=== PATIENT | female | born 1955 | race Caucasian/White ===

== ENCOUNTER 2017-08-08 16:06 | Inpatient (IN) | payer SELFPAY ==
[~2017-08-08] VITALS: Ht 167.6 cm; Wt 137.0 kg
[~2017-08-08 16:06] MED LIST: CITRAZINE; DICY1TAB26 PO; TAB-TAB PO; ZOFR4TAB OR; bariatric vitamins
[2017-08-08 16:22] VITALS: BP 157/95; PULSE 66; RESP 20; TEMP 97.4; O2SAT 96
[2017-08-08] MEDS ORDERED: METO25TA3 PO (16:44)
[2017-08-08] MEDS ORDERED: PARO20TA2 PO (16:44)
--- NOTE | 2017-08-08 17:25 | RADRPT ---
EXAM DATE/TIME: 08/08/2017 17:08 [place] COMPARISON: No previous studies available for comparison. INDICATIONS : Trauma, fall. MEDICAL HISTORY : Arthritis. SURGICAL HISTORY : None. ENCOUNTER: Initial ACUITY: 1 day PAIN SCORE: 10/10 LOCATION: Left wrist FINDINGS: There is a moderately comminuted and displaced/angulated intra-articular distal left radial fracture with dorsal angulation and displacement multiple small distal radial fracture fragments. There is jacki e foreshortening resulting in ulnar positive variance. The carpals are trans-located dorsally with th e distal radial articular surface fragments. Small ulnar styloid fracture fragment is present. There is no evidence of carpal fracture. There is mild arthritic change in the thumb carpal joint region. CONCLUSION: Comminuted moderately displaced, angulated and impacted distal left radial fracture as described Mainor Comer MD on August 08, 2017 at 17:21 Board Certified Radiologist. This report was verified electronically.
--- NOTE | 2017-08-08 17:28 | PD ---
HPI Chief Complaint: Fall Time Seen by Provider: 17:17 Travel History International Travel<30 days: No Contact w/Intl Traveler<30days: No Traveled to known affect area: No History of Present Illness HPI 61yo F with PMH of arthritis and carpal tunnel here with c/o left wrist pain s/ p fall about an hour ago. Said she was pulling weeds and was about to fall backwards but used her left wrist to stop the fall. Said she heard a pop and it swelled up immediately. Pain is localized in left wrist. Denies any fever, chest pain, sob, head trauma, n/v, abdominal pain, focal weakness or numbness. PFSH Past Medical History Blood Disorders: No Cancer: No Cardiovascular Problems: No Diabetes: Yes (RESOLVED WITH WEIGHT LOSS) Patient Takes Glucophage: No Endocrine: Yes (POLYCYSTITIS OVARIAN DISEASE) Gastrointestinal Disorders: Yes Glaucoma: No Genitourinary: No Hepatitis: No Hiatal Hernia: No Hypertension: No Immune Disorder: No Musculoskeletal: No Neurologic: No Psychiatric: No Reproductive: No Respiratory: No Thyroid Disease: No Influenza Vaccination: No ?: Not Menopausal: Yes Past Surgical History Abdominal Surgery: Yes (LAP CHOLECYSTECTOMY) Cholecystectomy: Yes Pacemaker: No Other Surgery: Yes (gastric bypass) Social History Alcohol Use: Yes (VERY RARELY) Tobacco Use: No Allergies-Medications (Allergen,Severity, Reaction): Coded Allergies: Sulfa (Sulfonamide Antibiotics) (Unverified Allergy, Unknown, DOES NOT KNOW CHILD, 08/08/17) ampicillin (Unverified Allergy, Unknown, DOES NOT KNOW CHILD, 08/08/17) Reported Meds & Prescriptions Reported Meds & Active Scripts Active Reported Paroxetine (Paroxetine HCl) 20 Mg Tab 20 Mg PO DAILY Metoprolol Tartrate 25 Mg Tab 12.5 Mg PO BID Review of Systems Except as stated in HPI: all other systems reviewed are Neg Physical Exam Narrative GENERAL: 61yo F in moderate distress. SKIN: Focused skin assessment warm/dry. HEAD: Atraumatic. Normocephalic. EYES: Pupils equal and round. No scleral icterus. No injection or drainage. ENT: No nasal bleeding or discharge. Mucous membranes pink and moist. NECK: Trachea midline. No JVD. CARDIOVASCULAR: Regular rate and rhythm. No murmur appreciated. RESPIRATORY: No accessory muscle use. Clear to auscultation. Breath sounds equal bilaterally. GASTROINTESTINAL: Abdomen soft, non-tender, nondistended. MUSCULOSKELETAL: LUE: +TTP distal radis > distal ulna. Sensation intact. Radial pulse 2+. No ttp left elbow. NEUROLOGICAL: Awake and alert. No obvious cranial nerve deficits. Motor grossly within normal limits. Normal speech. PSYCHIATRIC: Appropriate mood and affect; insight and judgment normal. Data Data Last Documented VS Vital Signs Date Time Temp Pulse Resp B/P (MAP) Pulse Ox O2 Delivery O2 Flow Rate FiO2 08/08/17 18:11 70 16 137/93 (108) 99 08/08/17 16:45 Room Air 08/08/17 16:22 97.4 Orders Orders Wrist, Complete ([id number]) (08/08/17 ) Morphine Inj (Morphine Inj) (08/08/17 17:45) Complete Blood Count With Diff (08/08/17 17:41) Basic Metabolic Panel (Bmp) (08/08/17 17:41) Prothrombin Time / Inr (Pt) (08/08/17 17:41) Act Partial Throm Time (Ptt) (08/08/17 17:41) Type And Screen (08/08/17 17:41) Splint Or Brace Apply/Monitor (08/08/17 18:10) Admit Order (Ed Use Only) (08/08/17 18:37) Consult Orthopedic (08/08/17 ) Labs Laboratory Tests Test 08/08/17 17:45 White Blood Count 7.2 TH/MM3 Red Blood Count 4.98 MIL/MM3 Hemoglobin 13.8 GM/DL Hematocrit 42.2 % Mean Corpuscular Volume 84.8 FL Mean Corpuscular Hemoglobin 27.7 PG Mean Corpuscular Hemoglobin Concent 32.7 % Red Cell Distribution Width 13.7 % Platelet Count 268 TH/MM3 Mean Platelet Volume 7.4 FL Neutrophils (%) (Auto) 74.1 % Lymphocytes (%) (Auto) 18.3 % Monocytes (%) (Auto) 5.7 % Eosinophils (%) (Auto) 1.3 % Basophils (%) (Auto) 0.6 % Neutrophils # (Auto) 5.4 TH/MM3 Lymphocytes # (Auto) 1.3 TH/MM3 Monocytes # (Auto) 0.4 TH/MM3 Eosinophils # (Auto) 0.1 TH/MM3 Basophils # (Auto) 0.0 TH/MM3 CBC Comment DIFF FINAL Differential Comment Prothrombin Time 9.9 SEC Prothromb Time International Ratio 1.0 RATIO Activated Partial Thromboplast Time 26.2 SEC Blood Urea Nitrogen 15 MG/DL Creatinine 1.10 MG/DL Random Glucose 111 MG/DL Calcium Level 9.0 MG/DL Sodium Level 137 MEQ/L Potassium Level 3.7 MEQ/L Chloride Level 103 MEQ/L Carbon Dioxide Level 26.2 MEQ/L Anion Gap 8 MEQ/L Estimat Glomerular Filtration Rate 50 ML/MIN [facility] Medical Decision Making Medical Screen Exam Complete: Yes Emergency Medical Condition: Yes Differential Diagnosis Fracture vs. contusion Narrative Course 61yo F with left wrist pain s/p breaking her fall with her left wrist today. Neurovascular intact. Last PO intake 12pm. Not on any anticoagulation. PMH include PACs on metoprolol, panic attack on paroxetine. Xray of left wrist showed comminuted moderately displaced, angulated and impacted distal radius fracture. I discussed with orthopedic surgeon live ammunition inspector Dr. Domínguez and he said that I would not be able to reduce that and pt needs surgery. He gave pt two options, either transfer to [facility] for surgery tomorrow or follow up in his clinic this Sunday. Pt wants to stay and be transfer for surgery tomorrow. He recommends admission to medicine, consult orthopedic and he will do surgery tomorrow morning. Labs reviewed, no leukocytosis. H/H normal. BMP unremarkable. Discussed with Dr. Bell and accepted to her service. Orthopedic consult placed. Diagnosis Primary Impression: Distal radius fracture, left Admitting Information Admitting Physician Requests: Admit Scripts Hydrocodone/Acetaminophen (Hydrocodone-Acetamin 7.5-325) 7.5 Mg-325 Mg Tablet 1 TAB PO Q6H Y for pain, #40 TAB Prov: Robbie Griffith MD 08/09/17 Karin Diego DO Aug 08, 2017 17:28
[2017-08-08] MEDS ORDERED: MORPHINE SULFATE 4 MG/ML INJ IV PUSH ONE (17:45)
[2017-08-08 18:03] LABS: AUTOMATED NEUTROPHIL # 5.4 TH/MM3 (1.8-7.7); BASOPHIL % 0.6 % (0.0-2.0); EOSINOPHIL # 0.1 TH/MM3 (0-0.4); EOSINOPHIL % 1.3 % (0.0-4.0); HEMATOCRIT 42.2 % (35.0-46.0); HEMOGLOBIN 13.8 GM/DL (11.6-15.3); LYMPH % 18.3 % (9.0-44.0); LYMPHOCYTE # 1.3 TH/MM3 (1.0-4.8); MEAN CELL VOLUME 84.8 FL (80.0-100.0); MEAN CORPUSCULAR HEMOGLOBIN 27.7 PG (27.0-34.0); MEAN CORPUSCULAR HGB CONC 32.7 % (32.0-36.0); MEAN PLATELET VOLUME 7.4 FL (7.0-11.0); MONO % 5.7 % (0.0-8.0); MONOCYTE # 0.4 TH/MM3 (0-0.9); NEUT % 74.1 % (16.0-70.0); PLATELET COUNT 268 TH/MM3 (150-450); RED BLOOD COUNT 4.98 MIL/MM3 (4.00-5.30); RED CELL DISTRIBUTION WIDTH 13.7 % (11.6-17.2); WHITE BLOOD COUNT 7.2 TH/MM3 (4.0-11.0)
[2017-08-08 18:11] VITALS: BP 137/93; PULSE 70; RESP 16; O2SAT 99
[2017-08-08 18:22] LABS: BICARBONATE 26.2 MEQ/L (21.0-32.0)
[2017-08-08 18:25] LABS: PROTHROMBIN TIME - PATIENT 9.9 SEC (9.8-11.6)
[2017-08-08 18:26] LABS: CREATININE 1.1 MG/DL (0.50-1.00)
[2017-08-08] MEDS ORDERED: TEMAZEPAM 15 MG CAP PO PRN (18:45)
[2017-08-08] MEDS ORDERED: NALOXONE HCL 0.4 MG/ML AMP IV PUSH PRN (18:45)
[2017-08-08] MEDS ORDERED: ACETAMINOPHEN 325 MG TAB PO PRN (18:45)
[2017-08-08] MEDS ORDERED: ONDANSETRON HCL 4 MG/2 ML VIAL IVP PRN (18:45)
[2017-08-08] MEDS ORDERED: SENNOSIDES 8.6 MG TAB PO PRN (18:45)
[2017-08-08] MEDS ORDERED: SODIUM CHLORIDE 0.9% FLUSH 10 ML FLUSH IV FLUSH PRN (18:45)
[2017-08-08] MEDS: SODIUM CHLOR 0.9% 1000 ML INJ 1,000 ML IV SCH (19:29)
[2017-08-08] MEDS: SODIUM CHLORIDE 0.9% FLUSH 10 ML FLUSH IV FLUSH SCH (21:00)
[2017-08-08] MEDS ORDERED: PILL SPLITTER OTHER PRN (21:30)
[2017-08-08 22:02] VITALS: BP 155/72; PULSE 84; RESP 18; TEMP 96.9; O2SAT 100
[2017-08-08] MEDS: ACETAMINOPHEN/HYDROcodone 325 MG/7.5 MG TAB PO PRN (22:47)
[2017-08-08] MEDS: METOPROLOL TARTRATE 25 MG TAB PO SCH (22:47)
[2017-08-08] MEDS ORDERED: POVIDONE IODINE 5% (ANTISEPSIS KIT) 4 APPLICATIONS EACH NARE PRN (23:45)
[2017-08-08] MEDS ORDERED: CHLORHEXIDINE GLUCONATE 2 % 1 PACK (2 CLOTHS) TOPICAL PRN (23:45)
[2017-08-08] MEDS ORDERED: SODIUM CHLORID 0.9% 500 ML IV PRN (23:45)
[2017-08-08] MEDS ORDERED: LACTATED RINGER'S 1000 ML IV PRN (23:45)
[2017-08-09 01:00] VITALS: BP 134/71; PULSE 56; RESP 18; TEMP 98.4; O2SAT 94
[2017-08-09] MEDS: SODIUM CHLOR 0.9% 1000 ML INJ 1,000 ML IV SCH (04:38)
[2017-08-09 04:57] VITALS: BP 129/69; PULSE 65; RESP 18; TEMP 97.1; O2SAT 95
[2017-08-09] MEDS: ACETAMINOPHEN/HYDROcodone 325 MG/7.5 MG TAB PO PRN ×2 (05:00→10:30)
[2017-08-09] MEDS: METOPROLOL TARTRATE 25 MG TAB PO SCH (07:24)
--- NOTE | 2017-08-09 07:53 | PD.CONS ---
HPI Service Orthopedic Surgeons Consult Requested By Admission staff Reason for Consult Fracture of the left wrist Primary Care Physician Noel Goldberg MD Admission Diagnosis Comminuted fracture left distal radius Diagnoses: Chief Complaint: Left wrist pain and deformity History of Present Illness This patient is a 61-year-old female who yesterday was pulling weeds. She tripped falling on her outstretched left arm. She had immediate pain and deformity and was seen and [facility] in [place]. X-rays were obtained showing evidence of a comminuted intra-articular fracture of the left distal radius. She has been admitted to the medical service and I have been asked to see her in consultation regarding the same Past Family Social History Allergies: Coded Allergies: Sulfa (Sulfonamide Antibiotics) (Unverified Allergy, Unknown, DOES NOT KNOW CHILD, 08/08/17) ampicillin (Unverified Allergy, Unknown, DOES NOT KNOW CHILD, 08/08/17) Active Ordered Medications Current Medications Medications (Trade) Dose Ordered Sig/Josue Route Start Time Stop Time Status Last Admin Sodium Chloride 1,000 ml @ 100 mls/hr Q10H IV 08/08/17 18:38 08/08/17 19:29 (NS Flush) 2 ml UNSCH PRN IV FLUSH 08/08/17 18:45 (NS Flush) 2 ml BID IV FLUSH 08/08/17 21:00 (Tylenol) 650 mg Q4H PRN PO 08/08/17 18:45 (Zofran Inj) 4 mg Q6H PRN IVP 08/08/17 18:45 (Restoril) 15 mg HS PRN PO 08/08/17 18:45 (Narcan Inj) 0.4 mg UNSCH PRN IV PUSH 08/08/17 18:45 (Senokot) 17.2 mg Q12H PRN PO 08/08/17 18:45 (Lopressor) 12.5 mg BID PO 08/08/17 21:00 08/09/17 07:24 (Paxil) 20 mg DAILY PO 08/09/17 09:00 08/09/17 07:27 ([place] 7.5-325 Mg) 1 tab Q6H PRN PO 08/08/17 18:45 08/09/17 05:00 Lactated Ringer's 1,000 ml @ 30 mls/hr Q24H PRN IV 08/08/17 23:45 08/11/17 23:44 Sodium Chloride 500 ml @ 30 mls/hr [id number] PRN IV 08/08/17 23:45 08/11/17 23:44 (Betadine 5% Antisepsis Kit) 1 applic TRANSPORTATION ANALYST PRN EACH NARE 08/08/17 23:45 08/11/17 23:44 (Chlorhexidine 2% Cloth) 3 pack TRANSPORTATION ANALYST PRN TOPICAL 08/08/17 23:45 08/11/17 23:44 Reported Meds & Active Scripts Active Reported Paroxetine (Paroxetine HCl) 20 Mg Tab 20 Mg PO DAILY Metoprolol Tartrate 25 Mg Tab 12.5 Mg PO BID Physical Exam Vital Signs Vital Signs Date Time Temp Pulse Resp B/P (MAP) Pulse Ox O2 Delivery O2 Flow Rate FiO2 08/09/17 04:57 97.1 65 18 129/69 (89) 95 08/09/17 01:00 98.4 56 18 134/71 (92) 94 08/08/17 22:02 96.9 84 18 155/72 (99) 100 08/08/17 21:20 08/08/17 18:11 70 16 137/93 (108) 99 08/08/17 16:45 Room Air 08/08/17 16:22 97.4 66 20 157/95 (115) 96 Physical Exam HEENT: Normocephalic atraumatic pupils equal round reactive. NECK: Supple. No abnormal masses. Full range of motion. CHEST: Clear to auscultation with no rales or rhonchi's or wheezes. HEART: Regular rate and rhythm. No murmurs. ABDOMEN: Soft, nontender, no masses. Normal active bowel sounds. GENITOURINARY: Deferred MUSCULOSKELETAL: Left wrist is in a splint. Sensation is normal. Alignment is satisfactory. Mild swelling. She wiggles her fingers. No tenderness about the elbow or shoulder. Laboratory Laboratory Tests Test 08/08/17 17:45 White Blood Count 7.2 Red Blood Count 4.98 Hemoglobin 13.8 Hematocrit 42.2 Mean Corpuscular Volume 84.8 Mean Corpuscular Hemoglobin 27.7 Mean Corpuscular Hemoglobin Concent 32.7 Red Cell Distribution Width 13.7 Platelet Count 268 Mean Platelet Volume 7.4 Neutrophils (%) (Auto) 74.1 Lymphocytes (%) (Auto) 18.3 Monocytes (%) (Auto) 5.7 Eosinophils (%) (Auto) 1.3 Basophils (%) (Auto) 0.6 Neutrophils # (Auto) 5.4 Lymphocytes # (Auto) 1.3 Monocytes # (Auto) 0.4 Eosinophils # (Auto) 0.1 Basophils # (Auto) 0.0 CBC Comment DIFF FINAL Differential Comment Prothrombin Time 9.9 Prothromb Time International Ratio 1.0 Activated Partial Thromboplast Time 26.2 Blood Urea Nitrogen 15 Creatinine 1.10 Random Glucose 111 Calcium Level 9.0 Sodium Level 137 Potassium Level 3.7 Chloride Level 103 Carbon Dioxide Level 26.2 Anion Gap 8 Estimat Glomerular Filtration Rate 50 Result Diagram: 08/08/17174408/08/17 174 Imaging X-rays reviewed and review of the radialis interpretation shows evidence of a comminuted intra-articular fracture left distal radius with displacement and angulation Assessment & Plan Assessment and Plan Fracture left distal radius, comminuted. PLAN: Consent: There are risks with surgery including infection, bleeding, loss of motion, continued pain, need for further surgery, neurologic or vascular injury. This patient understands these issues and wishes to proceed forward with surgery as outlined above. Surgery today if arrangements can be made. Probably discharged home later today if stable Robbie Griffith MD Aug 09, 2017 07:53
[2017-08-09 08:00] VITALS: BP 134/62; PULSE 56; RESP 18; TEMP 97.2; O2SAT 94
[2017-08-09] MEDS ORDERED: PARoxetine HCL 20 MG TAB PO SCH (09:00)
[2017-08-09] MEDS: SODIUM CHLORIDE 0.9% FLUSH 10 ML FLUSH IV FLUSH SCH (09:00)
--- NOTE | 2017-08-09 10:57 | HHI.HP ---
[facility] Service [facility] Primary Care Physician Noel Goldberg MD Admission Diagnosis Comminuted fracture left distal radius Diagnoses: (1) Distal radius fracture, left Diagnosis: Principal Chief Complaint: pain to the left wrist Travel History International Travel<30 Days: No Contact w/Intl Traveler <30 Da: No Traveled to Known Affected Are: No History of Present Illness patient is a 61 y/o female with history of PAC's and osteoarthritis who fell yesterday and injured her left wrist. she says that she was pulling weed when she fell backward and landed on her left arm. she denies any prodromal symptoms before the fall including chest pain, sob or dizziness. she didn't pass out and no head injury. the pain was mild to moderate at the time of my evaluation. Review of Systems Constitutional: DENIES: Fever, Weight loss, Chills, Night Sweats Eyes: DENIES: Blurred vision, Diplopia, Vision loss, Double Vision Ears, nose, mouth, throat: DENIES: Tinnitus, Vertigo, Throat pain, Epistaxis Respiratory: DENIES: Apneas, Cough, Snoring, Wheezing, Hemoptysis, Sputum production, Shortness of breath Cardiovascular: DENIES: Chest pain, Palpitations, Syncope, Dyspnea on Exertion , PND, Lower Extremity Edema, Orthopnea, Claudication Gastrointestinal: DENIES: Abdominal pain, Black stools, Bloody stools, Constipation, Diarrhea, Nausea, Vomiting, Difficulty Swallowing, Anorexia Genitourinary: DENIES: Urinary frequency, Urgency, Hematuria, Dysuria Musculoskeletal: COMPLAINS OF: Joint pain (left wrist.), DENIES: Muscle aches, Stiffness, Joint Swelling Integumentary: DENIES: Rash Neurologic: DENIES: Abnormal gait, Headache, Localized weakness, Paresthesias, Seizures, Speech Problems, Tremor, Poor Balance Psychiatric: DENIES: Anxiety, Confusion, Mood changes, Depression, Hallucinations, Agitation, Suicidal Ideation, Homicidal Ideation, Delusions Past Family Social History Past Medical History PAC's/ osteoarthritis. Past Surgical History cholecystectomy Reported Medications metoprolol/ paroxetine Allergies: Coded Allergies: Sulfa (Sulfonamide Antibiotics) (Unverified Allergy, Unknown, DOES NOT KNOW CHILD, 08/08/17) ampicillin (Unverified Allergy, Unknown, DOES NOT KNOW CHILD, 08/08/17) Active Ordered Medications Inpatient Medications Acetaminophen (Tylenol) 650 mg Q4H PRN PO TEMP > 100.4; Start 08/08/17 at 18:45 Acetaminophen/ Hydrocodone Bitart ([place] 7.5-325 Mg) 1 tab Q6H PRN PO pain Last administered on 08/09/17at 05:00; Start 08/08/17 at 18:45 Chlorhexidine Gluconate (Chlorhexidine 2% Cloth) 3 pack FINANCIAL ANALYSIS MANAGER PRN TOPICAL SEE LABEL COMMENTS; Start 08/08/17 at 23:45; Stop 08/11/17 at 23:44 Lactated Ringer's 1,000 ml @ 30 mls/hr Q24H PRN IV SEE LABEL COMMENTS; Start at 23:45; Stop 08/11/17 at 23:44 Metoprolol Tartrate (Lopressor) 12.5 mg BID PO Last administered on 08/09/17at 07:24; Start 08/08/17 at 21:00 Morphine Sulfate (Morphine Inj) 4 mg ONCE ONCE IV PUSH Last administered on at 18:07; Start 08/08/17 at 17:45; Stop 08/08/17 at 17:46; Status DC Naloxone HCl (Narcan Inj) 0.4 mg UNSCH PRN IV PUSH SEE LABEL COMMENTS; Start at 18:45 Ondansetron HCl (Zofran Inj) 4 mg Q6H PRN IVP NAUSEA OR VOMITING; Start at 18:45 Paroxetine HCl (Paxil) 20 mg DAILY PO Last administered on 08/09/17at 07:27; Start 08/09/17 at 09:00 Povidone Iodine (Betadine 5% Antisepsis Kit) 1 applic FINANCIAL ANALYSIS MANAGER PRN EACH NARE SEE LABEL COMMENTS; Start 08/08/17 at 23:45; Stop 08/11/17 at 23:44 Sennosides (Senokot) 17.2 mg Q12H PRN PO Moderate constipation; Start 08/08/17 at 18:45 Sodium Chloride 500 ml @ 30 mls/hr [id number] PRN IV SEE LABEL COMMENTS; Start at 23:45; Stop 08/11/17 at 23:44 Sodium Chloride (NS Flush) 2 ml BID IV FLUSH ; Start 08/08/17 at 21:00 Temazepam (Restoril) 15 mg HS PRN PO INSOMNIA; Start 08/08/17 at 18:45 Family History not significant. Social History no smoking or drinking. Physical Exam Vital Signs Vital Signs Date Time Temp Pulse Resp B/P (MAP) Pulse Ox O2 Delivery O2 Flow Rate FiO2 08/09/17 08:00 97.2 56 18 134/62 (86) 94 08/09/17 04:57 97.1 65 18 129/69 (89) 95 08/09/17 01:00 98.4 56 18 134/71 (92) 94 08/08/17 22:02 96.9 84 18 155/72 (99) 100 08/08/17 21:20 08/08/17 18:11 70 16 137/93 (108) 99 08/08/17 16:45 Room Air 08/08/17 16:22 97.4 66 20 157/95 (115) 96 Physical Exam GENERAL: This is a well-nourished, well-developed patient, in no apparent distress. SKIN: No rashes, ecchymoses or lesions. Cool and dry. HEAD: Atraumatic. Normocephalic. No temporal or scalp tenderness. EYES: Pupils equal round and reactive. Extraocular motions intact. No scleral icterus. No injection or drainage. ENT: Nose without bleeding, purulent drainage or septal hematoma. Throat without erythema, tonsillar hypertrophy or exudate. Uvula midline. Airway patent. NECK: Trachea midline. No JVD or lymphadenopathy. Supple, nontender, no meningeal signs. CARDIOVASCULAR: Regular rate and rhythm without murmurs, gallops, or rubs. RESPIRATORY: Clear to auscultation. Breath sounds equal bilaterally. No wheezes , rales, or rhonchi. GASTROINTESTINAL: Abdomen soft, non-tender, nondistended. No hepato-splenomegaly , or palpable masses. No guarding. MUSCULOSKELETAL: left forearm covered with clean dressing. NEUROLOGICAL: Awake and alert. Cranial nerves II through XII intact. Motor and sensory grossly within normal limits. Five out of 5 muscle strength in all muscle groups. Normal speech. Laboratory Laboratory Tests Test 08/08/17 17:45 White Blood Count 7.2 Red Blood Count 4.98 Hemoglobin 13.8 Hematocrit 42.2 Mean Corpuscular Volume 84.8 Mean Corpuscular Hemoglobin 27.7 Mean Corpuscular Hemoglobin Concent 32.7 Red Cell Distribution Width 13.7 Platelet Count 268 Mean Platelet Volume 7.4 Neutrophils (%) (Auto) 74.1 Lymphocytes (%) (Auto) 18.3 Monocytes (%) (Auto) 5.7 Eosinophils (%) (Auto) 1.3 Basophils (%) (Auto) 0.6 Neutrophils # (Auto) 5.4 Lymphocytes # (Auto) 1.3 Monocytes # (Auto) 0.4 Eosinophils # (Auto) 0.1 Basophils # (Auto) 0.0 CBC Comment DIFF FINAL Differential Comment Prothrombin Time 9.9 Prothromb Time International Ratio 1.0 Activated Partial Thromboplast Time 26.2 Blood Urea Nitrogen 15 Creatinine 1.10 Random Glucose 111 Calcium Level 9.0 Sodium Level 137 Potassium Level 3.7 Chloride Level 103 Carbon Dioxide Level 26.2 Anion Gap 8 Estimat Glomerular Filtration Rate 50 Result Diagram: 08/08/17 1745 08/08/17 1745 Imaging Last Impressions Wrist X-Ray 08/08/17 0000 Signed Impressions: Service Date/Time: Tuesday, August 08, 2017 17:08 - CONCLUSION: Comminuted moderately displaced, angulated and impacted distal left radial fracture as described MD Magalie Huerta VTE Risk Assessment Russellrini VTE Risk Assessment: Mod/High Risk (score >= 2) Caprini Risk Assessment Model Point Value = 1 Point Value = 2 Point Value = 3 Point Value = 5 Age 41-60 Minor surgery BMI > 25 kg/m2 Swollen legs Varicose veins or History of unexplained or recurrent spontaneous Oral contraceptives or hormone replacement Sepsis (< 1 month) Serious lung disease, including pneumonia (< 1 month) Abnormal pulmonary function Acute myocardial infarction Congestive heart failure (< 1 month) History of inflammatory bowel disease Medical patient at bed rest Age 61-74 Arthroscopic surgery Major open surgery (> 45 min) Laparoscopic surgery (> 45 min) Malignancy Confined to bed (> 72 hours) Immobilizing plaster cast Central venous access Age >= 75 History of VTE Family history of VTE Factor V Leiden Prothrombin [id number] Lupus anticoagulant Anticardiolipin antibodies Elevated serum homocysteine Heparin-induced thrombocytopenia Other congenital or acquired thrombophilia Stroke (< 1 month) Elective arthroplasty Hip, pelvis, or leg fracture Acute spinal cord injury (< 1 month) Prophylaxis Regimen Total Risk Factor Score Risk Level Prophylaxis Regimen 0-1 Low Early ambulation 2 Moderate Order ONE of the following: *Sequential Compression Device (SCD) *Heparin 5000 units SQ BID 3-4 Higher Order ONE of the following medications: *Heparin 5000 units SQ TID *Enoxaparin/Lovenox 40 mg SQ daily (WT < 150 kg, CrCl > 30 mL/min) *Enoxaparin/Lovenox 30 mg SQ daily (WT < 150 kg, CrCl > 10-29 mL/min) *Enoxaparin/Lovenox 30 mg SQ BID (WT < 150 kg, CrCl > 30 mL/min) AND/OR *Sequential Compression Device (SCD) 5 or more Highest Order ONE of the following medications: *Heparin 5000 units SQ TID (Preferred with Epidurals) *Enoxaparin/Lovenox 40 mg SQ daily (WT < 150 kg, CrCl > 30 mL/min) *Enoxaparin/Lovenox 30 mg SQ daily (WT < 150 kg, CrCl > 10-29 mL/min) *Enoxaparin/Lovenox 30 mg SQ BID (WT < 150 kg, CrCl > 30 mL/min) AND *Sequential Compression Device (SCD) Assessment and Plan Assessment and Plan A/P - left distal radius fracture after a fall continue with pain control- ortho consulted and plan for surgical intervention likely later today. -history of PAC's- continue metoprolol -DVT prophylaxis- pending surgical intervention Discussed Condition With the patient and RN. Physician Certification 2 Midnight Certification Type: Admission for Inpatient Services Order for Inpatient Services The services are ordered in accordance with Medicare regulations or non- Medicare payer requirements, as applicable. In the case of services not specified as inpatient-only, they are appropriately provided as inpatient services in accordance with the 2-midnight benchmark. Estimated LOS (days): 2 days is the estimated time the patient will need to remain in the hospital, assuming treatment plan goals are met and no additional complications. Post-Hospital Plan: Home Problem Qualifiers (1) Distal radius fracture, left: Brenda Jean MD Aug 09, 2017 10:57
[2017-08-09] MEDS ORDERED: HYDR-3580 PO ×2 (10:58→15:00)
[2017-08-09 11:36] VITALS: BP 130/67; PULSE 55; RESP 18; TEMP 96.7; O2SAT 96
[2017-08-09] MEDS ORDERED: GENTAMICIN SULFATE 80 MG/2 ML VIAL ONE (11:53)
[2017-08-09] MEDS ORDERED: LIDOCAINE HCL 1% 50 ML VIAL ONE (11:56)
[2017-08-09] MEDS ORDERED: BUPIVACAINE HCL PF 0.25% 30 ML VIAL ONE (11:56)
[2017-08-09] MEDS ORDERED: GLYCOPYRROLATE 1 MG/5 ML SYRINGE IV PUSH ONE (12:00)
[2017-08-09] MEDS ORDERED: LIDOCAINE HCL 1% PF 5 ML SYRINGE OTHER ONE (12:00)
[2017-08-09] MEDS ORDERED: DEXAMETHASONE SOD PHOS 4 MG/ML VIAL IV ONE (12:00)
[2017-08-09] MEDS ORDERED: NEOSTIGMINE 5 MG/5 ML SYRINGE IV PUSH ONE (12:00)
[2017-08-09] MEDS ORDERED: ONDANSETRON HCL 4 MG/2 ML VIAL IV ONE (12:00)
[2017-08-09] MEDS ORDERED: PROPOFOL 200 MG/20 ML AMP IV ONE (12:00)
[2017-08-09] MEDS ORDERED: ROCURONIUM INJ 50 MG/5 ML SYRINGE IV PUSH ONE (12:00)
[2017-08-09] MEDS ORDERED: ceFAZolin 2 GM PREMIX 50 ML ONE (12:26)
[2017-08-09] MEDS ORDERED: fentaNYL CITRATE 250 MCG/5 ML AMP ONE (13:08)
[2017-08-09] MEDS ORDERED: PROPOFOL 500 MG/50 ML INJ 50 ML ONE (13:08)
[2017-08-09] MEDS ORDERED: ROPIVACAINE 0.5% PF INJ 30 ML VIAL ONE (13:23)
[2017-08-09] MEDS ORDERED: BUPIVACAINE/EPINEPHRINE 0.25% 50 ML VIAL ONE (14:26)
[2017-08-09] MEDS ORDERED: LACTATED RINGER'S 1000 ML INJ 1,000 ML IV SCH (14:55)
[2017-08-09] MEDS ORDERED: MORPHINE SULFATE 8 MG/ML INJ IM PRN (15:00)
[2017-08-09] MEDS ORDERED: ZOLPIDEM TARTRATE 5 MG TAB PO PRN (15:00)
[2017-08-09] MEDS ORDERED: ACETAMINOPHEN/HYDROcodone 325 MG/5 MG TAB PO PRN ×2 (15:00)
[2017-08-09] MEDS ORDERED: ONDANSETRON HCL 4 MG/2 ML VIAL IV PUSH PRN (15:00)
--- NOTE | 2017-08-09 15:03 | PD.OP ---
cc: Robbie Griffith MD Operative Report Date of Surgery: Aug 09, 2017 Preoperative Diagnosis: Fracture left distal radius, 3 part, intra-articular Postoperative Diagnosis: Same Procedure: Open treatment internal fixation left distal radius fracture with volar plate and screws Anesthesia: Gen. with axillary block Surgeon: Robbie Griffith Club Attendant(s): ELIZABETH Stoner Operation and Findings: EBL: 50 cc INDICATION: This patient is a 61-year-old female who tripped and fell yesterday sustaining an injury to her left distal radius. She was admitted to the hospital. I saw this morning. She is felt be a candidate for surgical treatment of her left wrist NOTE: Leah Stoner PA-C was present for the entire surgical procedure as my first line production supervisor. In my medical opinion her skill and care was necessary for proper management of this patient. PROCEDURE: The patient was brought to the operating room and anesthetized in the supine position. This patient was positioned with the arm on the arm table. Fluoroscopy was used for visualization. A timeout was done. Antibiotics were given within 1 hour time window. The left arm was scrubbed with alcohol followed by Hibiclens followed by ChloraPrep and draped sterilely. A tourniquet was placed after exsanguination the tourniquet was inflated to 250 mmHg. A volar incision was made along the flexor carpi radialis tendon. The pronator quadratus was lifted from its radial attachment. The fracture was visualized. This was brought into a reduced position and held. A volar plate was positioned and held provisionally. Intraoperative x-ray showed anatomic alignment. Multiple distal locking screws were placed as well as shaft screws. The fracture was reduced anatomically. Intraoperative x-rays were obtained confirming the same. The tourniquet was let down. Hemostasis was controlled with the bipolar cautery. The wound was dry. The fascia was closed with 2-0 Vicryl suture. The skin and subcutaneous tissue was approximated with interrupted 3-0 nylon in a mattress fashion. A sterile dressing and a splint was applied. The patient was awakened and taken to the recovery room in satisfactory condition. COMPANY: [employer] NOTE: This patient will be seen approximated 3 weeks after surgery. This patient's fracture is stable enough that it is reasonable to consider a removable splint at that time if x-rays are satisfactory. Early motion is acceptable for this patient. Robbie Griffith MD Aug 09, 2017 15:03
--- NOTE | 2017-08-09 15:37 | RADRPT ---
EXAM DATE/TIME: 08/09/2017 14:44 [place] COMPARISON: No previous studies available for comparison. INDICATIONS : Orif left wrist. MEDICAL HISTORY : Left radial fracture,Arthritis. SURGICAL HISTORY : None. ENCOUNTER: Subsequent ACUITY: 2 days PAIN SCORE: Non-responsive. LOCATION: Left Wrist. FINDINGS: 2 images of the wrist are recorded digitally in the operating room using C-arm after placement of a v olar plate of the distal radius. CONCLUSION: Intraoperative images. Salazar Melton MD on August 09, 2017 at 15:35 Board Certified Radiologist. This report was verified electronically.
[2017-08-09 16:00] VITALS: BP 162/74; PULSE 78; RESP 18; TEMP 96.7; O2SAT 92
[2017-08-09] MEDS ORDERED: DO NOT ADM ANY ANTICOAGULANT DRUGS PRN (17:00)
[2017-08-09] MEDS ORDERED: DOCUSATE SODIUM 100 MG CAP PO SCH (21:00)
--- NOTE | 2017-08-10 14:35 | EKG ---
Date Performed: 08/09/2017 Time Performed: 12:21:08 PTAGE: 61 years EKG: Sinus rhythm BORDERLINE LEFT AXIS DEVIATION INCOMPLETE RIGHT BUNDLE BRANCH BLOCK BORDERLINE ECG PREVIOUS TRACING : 05/25/2010 12.32 Since the prior tracing, there has been no significant cassidy DOCTOR: Cecy Melton Interpretating Date/Time 08/10/2017 14:33:08
== END 2017-08-09 20:05 | disposition home or self-care (01) | DRG 512 ==
LOC: PHEFT 16:06 → PHEDA 18:39 → N06A 21:49
PROVIDERS: ADMIT Internal Medicine; ATTEND Internal Medicine
PROC: 3E0T3BZ Introduction of Anesthetic Agent into Peripheral Nerves and Plexi, Percutaneous Approach (ICD-10-PCS; 2017-08-09)
PROC: 0PSJ04Z Reposition Left Radius with Internal Fixation Device, Open Approach (ICD-10-PCS; principal; 2017-08-09 13:27)
DX: S52.572A Other intraarticular fracture of lower end of left radius, initial encounter for closed fracture (principal); E28.2 Polycystic ovarian syndrome; W01.0XXA Fall on same level from slipping, tripping and stumbling without subsequent striking against object, initial encounter; Y93.H2 Activity, gardening and landscaping; M19.90 Unspecified osteoarthritis, unspecified site; F41.0 Panic disorder [episodic paroxysmal anxiety]
CPT/HCPCS: 73100; 73110; 76000; 80048; 85025; 85610; 85730; 86850; 86900; 86901; 93005; 96374; C1713; J0690; J1100; J1580; J2270; J2405; J2710; J2795; J3010; J7030; J7120